=== PATIENT | female | born 1980 | race Caucasian/White ===

== ENCOUNTER 2019-05-25 11:21 | Emergency (ER) | payer OTHER ==
[~2019-05-25] VITALS: Ht 180.3 cm; Wt 81.6 kg
[2019-05-25 11:25] VITALS: BP 142/99
[2019-05-25] MEDS ORDERED: ACETAMINOPHEN 325 MG TABLET PO ONE (12:00)
[2019-05-25] MEDS ORDERED: IBUPROFEN 600 MG TABLET. PO ONE (12:00)
--- NOTE | 2019-05-25 12:05 | RAD ---
3 view study of the left foot Clinical indications: Trauma. Injury. A bar fell on top of foot. FINDINGS: Dorsal soft tissue swelling is seen. No acute fracture or dislocation or lytic process is evident. Plantar spur of the calcaneus is evident. IMPRESSION: No acute fracture. Electronically signed by: Sean Reddy MD (05/25/2019 12:02 PM) [facility]
--- NOTE | 2019-05-25 12:12 | PHYS DOC ---
Adult General Chief Complaint Chief Complaint: LOWEREXTREMITY INJURY HPI HPI Patient is a 39-year-old female with foot injury a pipe fell on her foot pain moderate to severe nonradiating at the exact location on the dorsum no numbness] Current Medications Current Medications Current Medications Medications (Trade) Dose Ordered Sig/Anneliese Start Time Stop Time Status Last Admin Dose Admin Acetaminophen (Tylenol) 650 mg 1X ONCE 05/25/19 12:00 05/25/19 12:01 DC Ibuprofen (Motrin) 600 mg 1X ONCE 05/25/19 12:00 05/25/19 12:01 DC Allergies Allergies Allergies Coded Allergies Type Severity Reaction Last Updated Verified No Known Drug Allergies 05/25/19 No Physical Exam Physical Exam Constitutional: Well developed, well nourished, no acute distress, non-toxic appearance. [] HENT: Normocephalic, atraumatic, bilateral external ears normal, oropharynx moist, no oral exudates, nose normal. [] Eyes: PERRLA, EOMI, conjunctiva normal, no discharge. [] Pulmonary: Normal respiratory effort no increased work of breathing no obvious chest wall trauma Back: No tenderness, no CVA tenderness. [] Extremities: Tenderness to palpation noted at the dorsum of the foot near the toes pulses present really no tenderness at the midfoot injury is more distal Neurologic: Alert and oriented X 3, normal motor function, normal sensory function, no focal deficits noted. [] Psychologic: Affect normal, judgement normal, mood normal. [] EKG EKG [] Radiology/Procedures Radiology/Procedures [] Impressions: FINDINGS: Dorsal soft tissue swelling is seen. No acute fracture or dislocation or lytic process is evident. Plantar spur of the calcaneus is evident. IMPRESSION: No acute fracture. Electronically signed by: Gabe Reddy MD (05/25/2019 12:02 PM) [facility] DICTATED AND SIGNED BY: GABE REDDY MD DATE: 05/25/19 1202 CC: FEDERICO BORREGO MD; PCP,NO ~ Course & Med Decision Making Course & Med Decision Making Pertinent Labs and Imaging studies reviewed. (See chart for details) []Foot contusion no clinical concern for Lisfranc Reassurance provided crutches rest ice gradual return to activity Dragon Disclaimer Dragon Disclaimer This electronic medical record was generated, in whole or in part, using a voice recognition dictation system. Departure Departure: Impression: Primary Impression: Foot contusion Disposition: 01 HOME, SELF-CARE Condition: STABLE Patient Instructions: Foot Contusion, [id number] FEDERICO BORREGO MD May 25, 2019 12:12
== END 2019-05-25 12:23 | disposition home or self-care (01) ==
LOC: ER 11:21
DX: S90.32XA Contusion of left foot, initial encounter (principal); W20.8XXA Other cause of strike by thrown, projected or falling object, initial encounter; Y93.89 Activity, other specified; Y92.89 Other specified places as the place of occurrence of the external cause; Y99.8 Other external cause status
CPT/HCPCS: 73630; 99284

== ENCOUNTER 2019-09-24 12:05 | Emergency (ER) | payer SELFPAY ==
[~2019-09-24] VITALS: Ht 177.8 cm; Wt 86.0 kg
[2019-09-24] MEDS ORDERED: IV NORMAL SALINE 1,000ML 1,000 ML IV ONE (12:30)
--- NOTE | 2019-09-24 12:43 | PHYS DOC ---
Past History Past Medical History: Hypertension Past Surgical History: No Surgical History Additional Smoking Information: pt reports using vape Alcohol Use: None Drug Use: None General Adult EDM: Chief Complaint: HYPOGLYCEMIA HPI: HPI: 39-year-old female presents via EMS after syncopal episode. 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 She was wearing a mask and began to feel little bit short of breath. She started to get hot and went to take off her mask and that is the last thing she remembers. A colleague called EMS. On arrival they found her blood sugar to be 65. Her mentation was slightly altered. She became more alert during transport to the emergency room. Patient tells me that she was feeling fine prior to this episode. She had one other syncopal episode during training from being overheated. She does not recall being especially hot, just that it was hard to breathe through her mask. She does not believe she has any injuries. She does not complain of any pain. She has been eating and drinking normally. She has no other concerns or complaints at this time. Review of Systems: Review of Systems: Constitutional: Syncope. Denies fever or chills Eyes: Denies change in visual acuity HENT: Denies nasal congestion or sore throat Respiratory: Denies cough or shortness of breath Cardiovascular: Denies chest pain or edema GI: Denies abdominal pain, nausea, vomiting, bloody stools or diarrhea : Denies dysuria Musculoskeletal: Denies back pain or joint pain Integument: Denies rash Neurologic: Denies headache, focal weakness or sensory changes Endocrine: Denies polyuria or polydipsia Lymphatic: Denies swollen glands Psychiatric: Denies depression or anxiety Heart Score: Risk Factors: Risk Factors: DM, Current or recent (<one month) smoker, HTN, HLP, family history of CAD, obesity. Risk Scores: Score 0 - 3: 2.5% MACE over next 6 weeks - Discharge Home Score 4 - 6: 20.3% MACE over next 6 weeks - Admit for Clinical Observation Score 7 - 10: 72.7% MACE over next 6 weeks - Early Invasive Strategies Current Medications: Current Meds: Current Medications Medications (Trade) Dose Ordered Sig/Anneliese Start Time Stop Time Status Last Admin Dose Admin Sodium Chloride 1,000 ml @ 1,000 mls/hr 1X ONCE 09/24/19 12:30 09/24/19 13:29 Allergies: Allergies: Allergies Coded Allergies Type Severity Reaction Last Updated Verified No Known Drug Allergies 05/25/19 No Physical Exam: PE: Constitutional: Well developed, well nourished, no acute distress, non-toxic appearance. [] HENT: Normocephalic, atraumatic, bilateral external ears normal, oropharynx moist, no oral exudates, nose normal. [] Eyes: PERRLA, EOMI, conjunctiva normal, no discharge. [] Neck: Normal range of motion, no tenderness, supple, no stridor. [] Cardiovascular: Heart rate regular rhythm, no murmur [] Lungs & Thorax: Bilateral breath sounds clear to auscultation [] Abdomen: Bowel sounds normal, soft, no tenderness, no masses, no pulsatile masses. [] Skin: Warm, dry, no erythema, no rash. [] Back: No tenderness, no CVA tenderness. [] Extremities: No tenderness, no cyanosis, no clubbing, ROM intact, no edema. [] Neurologic: Alert and oriented X 3, normal motor function, normal sensory function, no focal deficits noted. [] Psychologic: Affect normal, judgement normal, mood normal. [] Current Patient Data: Labs: Laboratory Tests Test 09/24/19 12:11 Glucose (Fingerstick) 76 mg/dL (70-99) Vital Signs: Vital Signs Date Time Temp Pulse Resp B/P (MAP) Pulse Ox O2 Delivery O2 Flow Rate FiO2 09/24/19 12:20 98.6 63 18 141/90 (107) 100 Room Air EKG: EKG: Sinus rhythm, rate 53, normal axis, no ST elevations or depressions. [] Radiology/Procedures: Radiology/Procedures: [] Impressions: AP chest. HISTORY: Syncope AP view was taken of the chest. Lungs are clear. Heart is normal in size. There is no pleural effusion. IMPRESSION: 1. No acute infiltrates. Electronically signed by: Willian Samaniego MD (09/24/2019 1:20 PM) [id number] DICTATED AND SIGNED BY: WILLIAN SAMANIEGO MD DATE: 09/24/19 1329 CC: ADELAIDA CARDOSO DO; PCP,NO ~ Course & Med Decision Making: Course & Med Decision Making Pertinent Labs and Imaging studies reviewed. (See chart for details) The patient seems a little sleepy, but otherwise is answering all my questions without difficulty. The patient was very sluggish and tired appearing in the emergency room. She had one episode where she felt presyncopal while walking in the hallway. The nurse helped her to the floor and she did not fall. I gave her an amp of D50 as well as a liter of normal saline. She stated feeling better. No history of diabetes. Not on insulin. Her labs are unremarkable. Her EKG is unremarkable. Her chest x-ray is unremarkable. Troponin is negative. Not really sure what is going on with patient. He has this profound fatigue? Is a dehydration? Her labs do not show obvious dehydration. I have advised that she go home to get some rest. She is stable for discharge at this time. [] Ayden Disclaimer: Ayden Disclaimer: This electronic medical record was generated, in whole or in part, using a voice recognition dictation system. Departure Departure: Impression: Primary Impression: Syncope and collapse Disposition: 01 HOME, SELF-CARE Condition: STABLE Referrals: PCP,NITIN (PCP) Patient Instructions: Syncope, [id number] ADELAIDA CARDOSO DO Sep 24, 2019 12:43
[2019-09-24] MEDS ORDERED: DEXTROSE 50% 25 GM / 50ML DISP.SYRIN. IV ONE (13:00)
[2019-09-24 13:06] LABS: BASO % 1 % (0-3); EOS % 0 % (0-3); HEMOGLOBIN 12.8 g/dL (12.0-15.5); LYMPH # 1.9 x10^3/uL (1.0-4.8); LYMPH % 22 % (24-48); MEAN CORPUSCULAR HEMOGLOBIN 30 pg (25-35); MEAN CORPUSCULAR HGB CONC 34 g/dL (31-37); MEAN CORPUSCULAR VOLUME 88 fL (79-100); MONO # 0.5 x10^3/uL (0.0-1.1); MONO % 6 % (0-9); NEUT # 5.9 x10^3uL (1.8-7.7); NEUT % 71 % (31-73); PLATELET COUNT 316 x10^3/uL (140-400); WHITE BLOOD COUNT 8.3 x10^3/uL (4.0-11.0)
--- NOTE | 2019-09-24 13:09 | EKG ---
[address] [address] Test Date: 2019-09-24 Test Time: 12:58:01 Pat Name: JHON IVERSON Department: Room: Gender: F Fire Medic: : 1980 Requested By: ADELAIDA CARDOSO Order Number: [id number] Reading MD: Amandeep Aquino MD Measurements Intervals [place] Rate: 53 P: 50 CA: 204 QRS: 80 QRSD: 78 T: 46 QT: 440 QTc: 415 Interpretive Statements SINUS RHYTHM Electronically Signed On 09-25-2019 9:37:25 CDT by Amandeep Aquino MD
[2019-09-24 13:16] LABS: CALCIUM 8.9 mg/dL (8.5-10.1); CREATININE 0.9 mg/dL (0.6-1.0); GFR 70.1
[2019-09-24 13:21] LABS: ALBUMIN 3.8 g/dL (3.4-5.0); ALBUMIN/GLOBULIN RATIO 1.4 (1.0-1.7); TOTAL BILIRUBIN 0.4 mg/dL (0.2-1.0); TOTAL PROTEIN 6.6 g/dL (6.4-8.2)
--- NOTE | 2019-09-24 13:23 | RAD ---
AP chest. HISTORY: Syncope AP view was taken of the chest. Lungs are clear. Heart is normal in size. There is no pleural effusion. IMPRESSION: 1. No acute infiltrates. Electronically signed by: Willian Packer MD (09/24/2019 1:20 PM) [id number]
[2019-09-24 14:13] LABS: AMPHETAMINE/METHAMPHETAMINE NEG (NEG); BARBITURATES NEG (NEG); BENZODIAZEPINES NEG (NEG); CANNABINOIDS NEG (NEG); COCAINE NEG (NEG); METHADONE NEG (NEG); OPIATES NEG (NEG); PHENCYCLIDINE NEG (NEG)
[2019-09-24 14:18] LABS: BACTERIA,URINE FEW /HPF (0-FEW); BILIRUBIN,URINE NEG (NEG); CLARITY,URINE HAZY; COLOR,URINE YELLOW; GLUCOSE,URINE 100 mg/dL (NEG); NITRITE,URINE NEG (NEG); SQUAMOUS EPITHELIAL CELL,UR MOD /LPF; UROBILINOGEN,URINE 0.2 mg/dL (0.2 mg/dL); WBC,URINE OCC /HPF (0-4)
[2019-09-24 14:49] VITALS: BP 147/84
== END 2019-09-24 14:49 | disposition home or self-care (01) ==
LOC: ER 12:05
DX: R55 Syncope and collapse (principal); R06.02 Shortness of breath; I10 Essential (primary) hypertension; F17.220 Nicotine dependence, chewing tobacco, uncomplicated
CPT/HCPCS: 36415; 71045; 80053; 80307; 81001; 81025; 82947; 84484; 85025; 93005; 96361; 96374; 99285-25; J7030